=== PATIENT | female | born 1970 | race Caucasian/White ===

== ENCOUNTER 2017-04-16 13:13 | Emergency (ER) | payer MEDICARE, MEDICAID ==
[~2017-04-16] VITALS: Ht 157.5 cm; Wt 92.5 kg
[~2017-04-16 13:13] MED LIST: ESCI5TAB PO; ESOM40CA PO; LAMO200T2 PO; LEVO25TA2 PO; PROP20TA22 PO
[2017-04-16 13:51] VITALS: BP 127/88
[2017-04-16] MEDS ORDERED: ALBUTEROL FS 2.5 MG/3 ML VIAL.NEB ONE (14:13)
[2017-04-16] MEDS ORDERED: IPRATROPIUM NEB FS 0.5 MG/2.5 ML AMPUL.NEB ONE (14:13)
[2017-04-16] MEDS ORDERED: ALBUTEROL FS 2.5 MG/3 ML VIAL.NEB NEB ONE (14:30)
[2017-04-16] MEDS ORDERED: IPRATROPIUM NEB FS 0.5 MG/2.5 ML AMPUL.NEB NEB ONE (14:30)
[2017-04-16] MEDS ORDERED: methylPREDNISolone SOD SUCC 125 MG/2ML VIAL IM ONE (14:30)
[2017-04-16] MEDS ORDERED: methylPREDNISolone SOD SUCC 125 MG/2ML VIAL ONE (14:45)
== END 2017-04-16 15:24 | disposition home or self-care (01) ==
LOC: ER 13:15
DX: J44.9 Chronic obstructive pulmonary disease, unspecified (principal); I10 Essential (primary) hypertension; K21.9 Gastro-esophageal reflux disease without esophagitis; J45.909 Unspecified asthma, uncomplicated; F31.9 Bipolar disorder, unspecified; F17.210 Nicotine dependence, cigarettes, uncomplicated; Z88.0 Allergy status to penicillin; Z88.2 Allergy status to sulfonamides
CPT/HCPCS: 71045-TC; A4606; J2930; Z7610

== ENCOUNTER 2017-05-20 11:28 | Emergency (ER) | payer MEDICARE, MEDICAID ==
[~2017-05-20] VITALS: Ht 157.5 cm; Wt 92.5 kg
[~2017-05-20 11:28] MED LIST changes: +PROP20TA19 PO; -PROP20TA22 PO
[2017-05-20 11:38] VITALS: BP 149/107
--- NOTE | 2017-05-20 11:58 | NUR ---
CALLED RT FOR BREATHING TX
[2017-05-20] MEDS ORDERED: ALBUTEROL FS 2.5 MG/3 ML VIAL.NEB CONTNEB ONE (12:00)
[2017-05-20] MEDS ORDERED: ALBUTEROL FS 2.5 MG/3 ML VIAL.NEB NEB ONE (12:00)
[2017-05-20] MEDS ORDERED: predniSONE 20 MG TABLET PO ONE (12:00)
[2017-05-20] MEDS ORDERED: predniSONE 20 MG TABLET ONE (12:01)
[2017-05-20] MEDS ORDERED: ALBUTEROL FS 2.5 MG/3 ML VIAL.NEB ONE (12:08)
--- NOTE | 2017-05-20 12:13 | NUR ---
RT NOTE DUPLICATE HHN TX ORDER PLACED IN PT EMAR. SPOKE TO HE REQUESTED TO DISREGARD CONTINUOS HHN ORDER. APPROPRIATE HHN TX ORDER ADMINISTERED TO PT.
== END 2017-05-20 13:02 | disposition home or self-care (01) ==
LOC: ER 11:29
DX: J20.9 Acute bronchitis, unspecified (principal); I10 Essential (primary) hypertension; J45.909 Unspecified asthma, uncomplicated; F17.210 Nicotine dependence, cigarettes, uncomplicated; F31.9 Bipolar disorder, unspecified; K21.9 Gastro-esophageal reflux disease without esophagitis; Z88.0 Allergy status to penicillin; Z88.2 Allergy status to sulfonamides; Z98.890 Other specified postprocedural states
CPT/HCPCS: 71045; 94640 ×2; 99284; 99406; A4606; J7512; Z7610

== ENCOUNTER 2017-07-14 16:36 | Emergency (ER) | payer MEDICARE, MEDICAID ==
[~2017-07-14] VITALS: Ht 157.5 cm; Wt 94.3 kg
[2017-07-14 16:44] VITALS: BP 147/95
[2017-07-14] MEDS ORDERED: IBUPROFEN 600 MG TABLET PO ONE ×2 (17:27→17:30)
[2017-07-14] MEDS ORDERED: HYDROCODONE/APAP 5/325MG 1 EACH TABLET ONE (17:27)
[2017-07-14] MEDS ORDERED: HYDROCODONE/APAP 5/325MG 1 EACH TABLET PO ONE (17:30)
== END 2017-07-14 18:22 | disposition home or self-care (01) ==
LOC: ER 16:41
DX: M25.572 Pain in left ankle and joints of left foot (principal); I10 Essential (primary) hypertension; J45.909 Unspecified asthma, uncomplicated; K21.9 Gastro-esophageal reflux disease without esophagitis; F17.210 Nicotine dependence, cigarettes, uncomplicated; Z88.0 Allergy status to penicillin; Z88.2 Allergy status to sulfonamides; F31.9 Bipolar disorder, unspecified; Z98.890 Other specified postprocedural states
CPT/HCPCS: 73630-TC; A4606; Z7610

== ENCOUNTER 2017-08-17 15:13 | Emergency (ER) | payer MEDICARE, MEDICAID ==
[~2017-08-17] VITALS: Ht 157.5 cm; Wt 94.3 kg
[2017-08-17 15:13] VITALS: BP 146/85
[2017-08-17] MEDS ORDERED: IPRATROPIUM NEB FS 0.5 MG/2.5 ML AMPUL.NEB NEB ONE (16:00)
[2017-08-17] MEDS ORDERED: predniSONE 20 MG TABLET PO ONE (16:00)
[2017-08-17] MEDS ORDERED: ALBUTEROL FS 2.5 MG/3 ML VIAL.NEB NEB ONE (16:00)
[2017-08-17] MEDS ORDERED: IPRATROPIUM NEB FS 0.5 MG/2.5 ML AMPUL.NEB ONE (16:20)
[2017-08-17] MEDS ORDERED: ALBUTEROL FS 2.5 MG/3 ML VIAL.NEB ONE (16:20)
[2017-08-17] MEDS ORDERED: predniSONE 20 MG TABLET ONE (16:22)
== END 2017-08-17 17:20 | disposition home or self-care (01) ==
LOC: ER 15:17
DX: J18.9 Pneumonia, unspecified organism (principal); J20.9 Acute bronchitis, unspecified; J42 Unspecified chronic bronchitis; F41.9 Anxiety disorder, unspecified; I10 Essential (primary) hypertension; J45.909 Unspecified asthma, uncomplicated; K21.9 Gastro-esophageal reflux disease without esophagitis; F31.9 Bipolar disorder, unspecified; F17.210 Nicotine dependence, cigarettes, uncomplicated; Z88.0 Allergy status to penicillin; Z88.2 Allergy status to sulfonamides
CPT/HCPCS: 71045-TC; A4606; Z7610

== ENCOUNTER 2017-08-23 15:02 | Emergency (ER) | payer MEDICARE, MEDICAID ==
[~2017-08-23] VITALS: Ht 167.6 cm; Wt 83.9 kg
[2017-08-23 15:10] VITALS: BP 139/89
[2017-08-23] MEDS ORDERED: DEXAMETHASONE SOD PHOSPHATE 10 MG/ML VIAL ONE (15:29)
[2017-08-23] MEDS ORDERED: DEXAMETHASONE SOD PHOSPHATE 10 MG/ML VIAL IM ONE (15:30)
== END 2017-08-23 15:42 | disposition home or self-care (01) ==
LOC: ER 15:04
DX: J20.9 Acute bronchitis, unspecified (principal); F31.9 Bipolar disorder, unspecified; I10 Essential (primary) hypertension; K21.9 Gastro-esophageal reflux disease without esophagitis; F17.210 Nicotine dependence, cigarettes, uncomplicated; Z88.0 Allergy status to penicillin; Z88.2 Allergy status to sulfonamides
CPT/HCPCS: A4606; J1100; Z7610

== ENCOUNTER 2017-09-03 22:04 | Emergency (ER) | payer MEDICARE, MEDICAID ==
[~2017-09-03] VITALS: Ht 157.5 cm; Wt 94.3 kg
[2017-09-03 22:11] VITALS: BP 169/114
[2017-09-03] MEDS ORDERED: LORAZEPAM 1 MG TABLET ONE (23:05)
[2017-09-03] MEDS ORDERED: LORAZEPAM 1 MG TABLET PO ONE (23:30)
== END 2017-09-03 23:08 | disposition home or self-care (01) ==
LOC: ER 22:06
DX: R05 Cough (principal); F41.9 Anxiety disorder, unspecified; F31.9 Bipolar disorder, unspecified; J45.909 Unspecified asthma, uncomplicated; I10 Essential (primary) hypertension; F17.210 Nicotine dependence, cigarettes, uncomplicated; Z88.2 Allergy status to sulfonamides; Z88.0 Allergy status to penicillin; K21.9 Gastro-esophageal reflux disease without esophagitis
CPT/HCPCS: 99284; 99406; A4606; Z7610

== ENCOUNTER 2017-10-27 17:40 | Inpatient (IN) | payer MEDICARE, MEDICAID ==
[~2017-10-27] VITALS: Ht 157.5 cm; Wt 96.6 kg
--- NOTE | 2017-10-27 18:28 | NUR ---
[facility] - [employer] EXAMINER EULOGIO SANTOS
[2017-10-27] MEDS ORDERED: KETOROLAC TROMETHAMINE INJ 30 MG/ML VIAL IV ONE (18:30)
[2017-10-27] MEDS ORDERED: LORAZEPAM INJ 2 MG/ML VIAL IV ONE (18:30)
[2017-10-27] MEDS ORDERED: PIPERACILLIN /TAZOBACTAM 3.375 G in IV D5W 50 ML IV ONE (18:30)
[2017-10-27] MEDS ORDERED: CEFTRIAXONE 1GM BAG (ER ONLY) 50 ML IV ONE (18:30)
[2017-10-27] MEDS ORDERED: IV NS 0.9% 1,000 ML BAG IV ONE (18:30)
[2017-10-27] MEDS ORDERED: LAMO25TA5 PO (18:31)
[2017-10-27] MEDS ORDERED: PROP10TA68 PO (18:31)
[2017-10-27] MEDS ORDERED: CLON0.5T12 PO (18:31)
[2017-10-27] MEDS ORDERED: VENL225T PO (18:31)
[2017-10-27] MEDS ORDERED: QUET25TA PO (18:31)
[2017-10-27 18:39] LABS: BASOPHILS # (AUTO) 0.1 /CMM (0.0-0.2); BASOPHILS % (AUTO) 0.5 % (0.0-2.0); EOSINOPHILS % (AUTO) 2.4 % (0.0-6.0); HEMATOCRIT 42 % (33-45); HEMOGLOBIN 14.5 g/dL (11.5-14.8); LYMPHOCYTES % (AUTO) 14.9 % (20.0-44.0); MEAN CORPUSCULAR HEMOGLOBIN 31 PG (26.0-33.0); MEAN CORPUSCULAR HGB CONC 35 g/dl (31.0-36.0); MEAN CORPUSCULAR VOLUME 89 fL (82-100); MONOCYTES % (AUTO) 7.7 % (2.0-12.0); NEUTROPHILS # (AUTO) 10.2 /CMM (1.8-8.9); NEUTROPHILS % (AUTO) 74.5 % (43.0-81.0); PLATELET COUNT (AUTO) 331 /CMM (150-450); RDW COEFFICIENT OF VARIATION 13.3 (11.5-15.0); RED BLOOD CELL COUNT(AUTO) 4.71 MIL/uL (4.0-5.2); WHITE BLOOD COUNT (AUTO) 13.6 K/uL (4.3-11.0)
[2017-10-27] MEDS ORDERED: IV NS 0.9% 1,000 ML IV PRN (18:39)
[2017-10-27] MEDS ORDERED: LORAZEPAM INJ 2 MG/ML VIAL ONE (18:39)
[2017-10-27] MEDS ORDERED: KETOROLAC TROMETHAMINE 15 MG/ML VIAL ONE (18:42)
--- NOTE | 2017-10-27 18:53 | NUR ---
CALLED NURSE SUP FOR MED/SURG BED
--- NOTE | 2017-10-27 18:54 | NUR ---
pt pending admit iv started 20g rt ac labs sent to lab .not able to given ua at this time iv ns bolus and med given per md wagner ativan 1 mg ivp pain 10/10 left breast swollen and son. no drainage at this time .
[2017-10-27 18:57] LABS: CALCIUM, SERUM 8.5 mg/dL (8.5-10.1); CARBON DIOXIDE 22 mmol/L (21-32); CHLORIDE 103 mmol/L (98-107); CREATININE 0.6 mg/dL (0.6-1.3); GLUCOSE 76 mg/dL (74-106); POTASSIUM 3.9 mmol/L (3.5-5.1); SODIUM SERUM 135 mmol/L (136-145); UREA NITROGEN, BLOOD 6 mg/dL (7-18)
--- NOTE | 2017-10-27 18:58 | NUR ---
pt stated feeling better with pain /
[2017-10-27] MEDS ORDERED: MAGNESIUM HYDROXIDE 30 ML UDC PO PRN (19:00)
[2017-10-27] MEDS ORDERED: LEVOFLOXACIN (500MG) 500 MG TABLET PO ONE (19:00)
[2017-10-27] MEDS ORDERED: Z GUARD REMEDY 2 OZ OINT TP PRN (19:00)
[2017-10-27] MEDS ORDERED: ONDANSETRON HCL/PF 4 MG/2 ML VIAL IVP PRN (19:00)
[2017-10-27] MEDS ORDERED: ACETAMINOPHEN 325 MG TABLET PO PRN (19:00)
[2017-10-27] MEDS ORDERED: MAG HYDROX/AL HYDROX/SIMETH 30 ML UDC PO PRN (19:00)
[2017-10-27 19:01] LABS: INR 0.92 (0.85-1.15)
[2017-10-27 19:03] LABS: ALANINE AMINOTRANSFERASE 26 U/L (12-78); ALBUMIN 3.7 g/dL (3.4-5.0); ALKALINE PHOSPHATASE 85 U/L (46-116); ASPARTATE AMINOTRANSFERASE 13 U/L (15-37); BILIRUBIN,DIRECT 0.1 mg/dL (0.0-0.2); BILIRUBIN,TOTAL 0.4 mg/dL (0.2-1.0); LIPASE 117 U/L (73-393); TOTAL PROTEIN, SERUM 7.2 g/dL (6.4-8.2)
[2017-10-27 19:04] LABS: TROPONIN I < 0.017 ng/mL (0.00-0.056)
--- NOTE | 2017-10-27 19:04 | NUR ---
pt hx homeless meth etoh sober now smokes 1 1/2 arielle daily 30 years
--- NOTE | 2017-10-27 19:10 | NUR ---
REPORT RECEIVED FROM NATALIA KIRKPATRICK FOR ARNOLDO. READY FOR TRANSFER TO FLOOR AFTER SHIFT CHANGE.
[2017-10-27] MEDS ORDERED: LEVOFLOXACIN (750 MG) 750 MG TABLET ONE (19:29)
[2017-10-27 19:32] LABS: IRON, SERUM 43 ug/dl (50-175); TOTAL IRON BINDING CAPACITY 339 ug/dl (250-450)
--- NOTE | 2017-10-27 19:34 | NUR ---
REPORT GIVEN TO KAREN KIRKPATRICK FOR ADMISSION. NAD NOTED. ALL NEEDS ATTENDED TO.
[2017-10-27 20:00] VITALS: BP 134/64
[2017-10-27] MEDS ORDERED: VANCOMYCIN 1 GM VIAL ONE (20:28)
--- NOTE | 2017-10-27 20:28 | NUR ---
MS RN NOTES: RACHEL SANTOS AT BEDSIDE.
[2017-10-27] MEDS ORDERED: ENOXAPARIN SODIUM 40 MG/0.4 ML DISP.SYRIN SQ ONE (20:30)
[2017-10-27] MEDS ORDERED: VANCOMYCIN 1.5 GM in IV D5W 500ml IV ONE (21:00)
[2017-10-27] MEDS: ENOXAPARIN SODIUM 40 MG/0.4 ML DISP.SYRIN SQ SCH (21:09)
[2017-10-27] MEDS: QUETIAPINE FUMARATE 25 MG TABLET PO SCH (21:10)
[2017-10-27] MEDS ORDERED: PROPRANOLOL HCL 10 MG TABLET PO ONE (21:30)
[2017-10-27] MEDS ORDERED: LamoTRIgine 100 MG TABLET ONE (22:14)
--- NOTE | 2017-10-27 22:15 | NUR ---
MS RN NOTES: CALLED AFTER HOUR PHARMACY IN [place] TO LAMICTAL 250 MG TO CHANGE SCHEDULE FOR TONIGHT PT DID NOT HAVE HER DOSE TONIGHT. SPOKE WITH SAMANTHA. ALSO, THEY MENTIONED CHARGE NURSE HAS TO OVERRIDE MEDICATION I WAS NOT ABLE TO PULL IT OUT OF BOTH MED ROOMS. CHARGE NURSE AWARE. AFTER HOURS PHARMACY ALSO AWARE THEY WERE THE ONE WHO ADVISED IT.
[2017-10-27] MEDS: LamoTRIgine 100 MG TABLET PO SCH (22:21)
--- NOTE | 2017-10-27 22:48 | NUR ---
MS RN NOTES: PT SIGNED CONSENT FOR SMOKING. PT BROUGHT DOWN WITH WARP DOFFER, ANTOINETTE, FOR A SMOKE BREAK.
--- NOTE | 2017-10-27 23:40 | NUR ---
MS RN NOTES: PT BACK FROM SMOKE BREAK IN STABLE CONDITION.
[2017-10-28] MEDS: HYDROCODONE/APAP 5/325MG 1 EACH TABLET PO PRN ×4 (00:42→20:10)
--- NOTE | 2017-10-28 00:42 | NUR ---
MS RN NOTES: PT COMPLAINING OF L BREAST PAIN 10/18. PT WAS ADMINISTERED NORCO 5. WILL CONTINUE TO MONITOR PT.
--- NOTE | 2017-10-28 05:00 | NUR ---
MS RN NOTES: PT APPEARS TO BE ANXIOUS. PT BROUGHT DOWN FOR A SMOKE BREAK. EXPLAINED TO PT RISKS AND BENEFITS. PT UNDERSTOOD.
--- NOTE | 2017-10-28 05:25 | NUR ---
MS RN NOTES: INFORMED STRINGED INSTRUMENT REPAIRER JOANA ABOUT PT RETAINING URINE. DID LATEST BLADDER SCANNER AND THE MOST WAS 163. PT IS HAVING THE URGE BUT HAS NOT GONE YET. PER STRINGED INSTRUMENT REPAIRER JOANA, WILL DO ANOTHER DOSE OF FLOMAX 0.4MG PO. WILL MONITOR FOR IT.
--- NOTE | 2017-10-28 05:35 | NUR ---
MS RN NOTES: PT'S PHONE CHARGING IN FLOOR REPRESENTATIVE STATION. LABEL PLACED BEHIND BLACK PHONE.
[2017-10-28 07:20] LABS: BASOPHILS % (AUTO) 0.3 % (0.0-2.0); EOSINOPHILS % (AUTO) 2.6 % (0.0-6.0); HEMATOCRIT 38 % (33-45); HEMOGLOBIN 13.1 g/dL (11.5-14.8); LYMPHOCYTES % (AUTO) 16.8 % (20.0-44.0); MEAN CORPUSCULAR HEMOGLOBIN 31 PG (26.0-33.0); MEAN CORPUSCULAR HGB CONC 34 g/dl (31.0-36.0); MEAN CORPUSCULAR VOLUME 92 fL (82-100); MONOCYTES # (AUTO) 0.7 /CMM (0.1-1.30); NEUTROPHILS % (AUTO) 74.3 % (43.0-81.0); PLATELET COUNT (AUTO) 241 /CMM (150-450); RDW COEFFICIENT OF VARIATION 13.9 (11.5-15.0); RED BLOOD CELL COUNT(AUTO) 4.18 MIL/uL (4.0-5.2); WHITE BLOOD COUNT (AUTO) 12.1 K/uL (4.3-11.0)
[2017-10-28 07:27] LABS: CALCIUM, SERUM 7.8 mg/dL (8.5-10.1); CREATININE 0.7 mg/dL (0.6-1.3); MAGNESIUM 1.8 mg/dL (1.8-2.4); PHOSPHORUS 3.8 mg/dL (2.5-4.9); POTASSIUM 3.8 mmol/L (3.5-5.1)
[2017-10-28 07:30] LABS: THYROID STIMULATING HORMONE 7.219 uIU/mL (0.358-3.74)
--- NOTE | 2017-10-28 07:38 | NUR ---
MS RN CLOSING NOTES: ALL NEEDS WERE ATTENDED AND ANTICIPATED FOR. PT KEPT CLEAN, DRY, AND COMFORTABLE. PT HAS IV AND IS BEING INFUSED WITH IV NS AT 75ML/HR. CALL LIGHT WITHIN PT'S REACH. BED KEPT IN LOW, LOCKED POSITION, AND SIDE RAILS X2UP. ENDORSED TO AM FOR ARNOLDO.
[2017-10-28 08:00] VITALS: BP 125/66
[2017-10-28] MEDS ORDERED: FEE PK DOSING 1 MIN EA MC ONE (08:00)
--- NOTE | 2017-10-28 08:00 | NUR ---
m/s human services program specialist: initial assessment received pt in bed awake, a/ox4, ambulatory. no c/o pain at this time. dressing to left breast in place. for ultrasound of left breast today. instructed to call for assistance. will continue to monitor.
[2017-10-28] MEDS: NICOTINE PATCH (14MG) 14 MG PATCH.TD24 TD SCH (08:14)
[2017-10-28] MEDS: VENLAFAXINE XR 75 MG CAP.SR.24H PO SCH (08:15)
[2017-10-28] MEDS: PROPRANOLOL HCL 10 MG TABLET PO SCH ×2 (08:15→16:21)
[2017-10-28] MEDS: PANTOPRAZOLE 40 MG TABLET.DR PO SCH (08:15)
[2017-10-28] MEDS: VANCOMYCIN 1.25 GM in IV D5W 500 ML IV SCH ×2 (09:16→21:59)
--- NOTE | 2017-10-28 09:50 | NUR ---
m/s wood lather: notes us of left breast completed. dressing to left breast applied; noted with drainage of brown pus, no peeling noted, still with redness. instructed to call for assistance. will continue to monitor.
--- NOTE | 2017-10-28 10:29 | NUR ---
m/s senior piping designer: md visit seen and examined by concha (transportation clerk) at this time. for id consult and oncologist consult. pt aware and concha updated plan of care at bedside. will monitor.
--- NOTE | 2017-10-28 11:27 | NUR ---
m/s desk operator: notes c/o 11/18 left breast discomfort, medicated with norco 1 tab po as ordered. instructed to call for assistance. will monitor.
--- NOTE | 2017-10-28 11:43 | NUR ---
m/s sales strategy manager: plastic surgeon seen by dr. gonzalez and wound culture collected to left breast abscess. specimen sent to lab.
--- NOTE | 2017-10-28 12:27 | NUR ---
m/s manager diversity: notes pt resting comfortable in bed and request for ativan order for her anxiety level, stated, "e.r. gave me ativan and it help for my anxiety, can you call the doctor for it." concha (line construction engineer) notified and made aware with no new order at this time.
[2017-10-28] MEDS ORDERED: clonazePAM 0.5 MG TABLET PO ONE (13:00)
--- NOTE | 2017-10-28 14:00 | NUR ---
m/s tobacco shaker: notes pt resting calmly in bed with no distress noted. instructed to call for assistance. will continue to monitor.
[2017-10-28 16:00] VITALS: BP 133/68
--- NOTE | 2017-10-28 16:40 | NUR ---
m/s mexican food maker hand: notes report given to mohsen (rn) for continuity of care.
--- NOTE | 2017-10-28 19:06 | NUR ---
MS RN NOTES PT REMAINS STABLE. SHE DENIES PAIN AT THIS TIME. ALL NEEDS ANTICIPATED FOR AND MET. IV REMAINS PATENT AND INTACT, WILL ENDORSE TO NIGHTSHIFT NURSE FOR ARNOLDO
--- NOTE | 2017-10-28 19:47 | NUR ---
MS/RN OPENING NOTES PT RECEIVED AWAKE AND LAYING COMFORTABLY IN BED. A/OX4. ON ROOM AIR, BREATHING EVEN AND UNLABORED. DENIES SOB, NOTES PAIN TO HER LEFT BREAST AND REQUESTING NORCO. IV TO RIGHT HAND PATENT AND INTACT RUNNING IVF ORDERED. BED IN LOW/LOCKED POSITION WITH CALL LIGHT IN REACH. SIDE RAILS UPX2. WILL CONTINUE TO MONITOR
[2017-10-28 20:00] VITALS: BP 143/97
--- NOTE | 2017-10-28 20:45 | NUR ---
MS/RN NOTES PT WENT DOWN TO SMOKE ACCOMPANIED BY ROSE ERVIN Addendum: 10/28/17 at 2056 by PERRI SIDHU RN PT BACK UP TO UNIT IN STABLE CONDITION
[2017-10-28] MEDS: QUETIAPINE FUMARATE 25 MG TABLET PO SCH (21:58)
[2017-10-28] MEDS: LamoTRIgine 100 MG TABLET PO SCH (21:59)
[2017-10-28] MEDS ORDERED: LamoTRIgine 25 MG TABLET PO SCH (22:00)
[2017-10-28] MEDS ORDERED: LamoTRIgine 100 MG TABLET PO SCH (22:00)
[2017-10-28] MEDS: ENOXAPARIN SODIUM 40 MG/0.4 ML DISP.SYRIN SQ SCH (22:01)
--- NOTE | 2017-10-28 23:00 | NUR ---
MS/RN NOTES PT WENT DOWN FOR ANOTHER SMOKE BREAK. INFORMED HER THAT THIS WILL BE THE LAST TIME FOR THE NIGHT. VERBALIZED UNDERSTANDING. ACCOMPANIED BY ROSE
--- NOTE | 2017-10-28 23:10 | NUR ---
MS/RN NOTES PT BACK UP TO UNIT IN STABLE CONDITION. CIGARETTES AND SIGNALS OFFICER LEFT AT NURSING STATION.
--- NOTE | 2017-10-29 07:30 | NUR ---
RN OPENING NOTES RECEIVED PT. IN BED AWAKE, A&OX4, EATING BREAKFAST. BREATHING UNLABORED AND EVENLY ON ROOM AIR. PT. DENIES PAIN. IV ACCESS IS ON LEFT HAND INTACT, AND PATENT. PT.'S SKIN IS WARM AND DRY TO TOUCH. BED IS IN LOWEST, AND LOCKED POSITION. 2 SIDE RAILS UP, AND INSTRUCTED PT. TO USE CALL LIGHT FOR ASSISTANCE. ALL NEEDS MET. WILL CONTINUE TO ASSESS AND MONITOR.
--- NOTE | 2017-10-29 07:34 | NUR ---
MS/RN CLOSING NOTES PT ASLEEP, A/OX3. ON ROOM AIR, BREATHING EVEN AND UNLABORED. NO SOB, PAIN OR ACUTE DISTRESS NOTED. IV TO LEFT HAND PATENT AND INTACT. ALL DUE MEDS GIVEN. NO SIGNIFICANT CHANGES OVERNIGHT. ALL NEEDS MET. PT SLEPT WELL DURING SHIFT. LEFT BREAST CLEANSED WITH NS, PAT DRY AND COVERED WITH DRY GAUZE, SECURED WITH TAPE. WOUND CONSULT ORDERED. BED REMAINS IN LOW/LOCKED POSITION WITH CALL LIGHT IN REACH AND BILATERAL UPPER SIDE RAILS UPX2. ENDORSED TO DAY SHIFT RN ARNOLDO.
--- NOTE | 2017-10-29 07:38 | NUR ---
WOUND CARE CONSULT WOUND CARE RECEIVED CONSULT FOR LEFT BREAST WOUND. WOUND CARE WILL DEFER CONSULT AND TREATMENT PLANS TO SURGICAL TEAM WHO ARE CURRENTLY FOLLOWING. PT WITH GILBERTO AT 23. WILL SEE PRN.
[2017-10-29 08:00] VITALS: BP 119/68
--- NOTE | 2017-10-29 08:00 | NUR ---
PT. WAS SEEN AND EXAMINED BY DR. MIRELES FOR A WOUND CONSULTATION OF THE LEFT BREAST. MD RECOMMENDED PT. SURGICAL INTERVENTION AND ORDERED A CONSENT FOR INCISION AND DRAINAGE OF LEFT BREAST ABCESS AND BIOPSY. PT. VERBALLY AGREED ON HAVING THE PROCEDURE.
[2017-10-29 08:28] LABS: CALCIUM, SERUM 8.2 mg/dL (8.5-10.1); CREATININE 0.8 mg/dL (0.6-1.3); POTASSIUM 3.9 mmol/L (3.5-5.1)
[2017-10-29] MEDS: VENLAFAXINE XR 75 MG CAP.SR.24H PO SCH (08:42)
[2017-10-29] MEDS: PANTOPRAZOLE 40 MG TABLET.DR PO SCH (08:42)
[2017-10-29] MEDS: PROPRANOLOL HCL 10 MG TABLET PO SCH ×2 (08:45→16:58)
[2017-10-29] MEDS: NICOTINE PATCH (14MG) 14 MG PATCH.TD24 TD SCH (08:46)
[2017-10-29] MEDS: HYDROCODONE/APAP 5/325MG 1 EACH TABLET PO PRN (09:12)
[2017-10-29] MEDS: VANCOMYCIN 1.25 GM in IV D5W 500 ML IV SCH ×2 (09:17→20:52)
[2017-10-29 16:00] VITALS: BP 117/58
--- NOTE | 2017-10-29 19:30 | NUR ---
MS RN OPENING NOTES PT SITTING IN BED AWAKE, A&OX4. BREATHING UNLABORED ON ROOM AIR. PT DENIES PAIN AT THIS TIME. IV ACCESS IS ON LEFT HAND INTACT, AND PATENT. BED IS IN LOWEST, AND LOCKED POSITION. 2 SIDE RAILS UP, CALL LIGHT WITHIN REACH. PT SMOCKS AND ALLOWED TO SMOKE OUTSIDE WITH ACCOMPANY FIRE PROTECTION ENGINEER REGULATED PROGRAM MANAGER.PT IS NPO AFTER MIDNIGHT.WILL CONTINUE TO MONITOR
--- NOTE | 2017-10-29 19:31 | NUR ---
RN CLOSING NOTES PT. IN BED AWAKE, A&OX4. BREATHING UNLABORED AND EVENLY ON ROOM AIR. PT. DENIES PAIN. IV ACCESS IS ON LEFT HAND INTACT, AND PATENT. PT.'S SKIN IS WARM AND DRY TO TOUCH. BED IS IN LOWEST, AND LOCKED POSITION. 2 SIDE RAILS UP, AND INSTRUCTED PT. TO USE CALL LIGHT FOR ASSISTANCE. ALL NEEDS MET. WILL ENDORSE REPORT TO NURSE. PT. IS NPO AFTER MIDNIGHT. PROCEDURE, AND ANESTHESIA CONSENTS SIGNED BY PT. CHECKLIST IN PROGRESS.
[2017-10-29 20:00] VITALS: BP 116/77
[2017-10-29] MEDS: ENOXAPARIN SODIUM 40 MG/0.4 ML DISP.SYRIN SQ SCH (21:00)
--- NOTE | 2017-10-29 21:02 | NUR ---
WITHHELD LOVENOX DUE TO PT HAVING A PROCEDURE TOMORROW AT 07-30 AM
[2017-10-29] MEDS: QUETIAPINE FUMARATE 25 MG TABLET PO SCH (21:51)
[2017-10-29] MEDS: LamoTRIgine 100 MG TABLET PO SCH (21:51)
[2017-10-30 06:24] LABS: BASOPHILS % (AUTO) 0.4 % (0.0-2.0); EOSINOPHILS % (AUTO) 5.4 % (0.0-6.0); HEMATOCRIT 46 % (33-45); LYMPHOCYTES # (AUTO) 2.1 /CMM (0.8-4.8); LYMPHOCYTES % (AUTO) 24.9 % (20.0-44.0); MEAN CORPUSCULAR HEMOGLOBIN 28 PG (26.0-33.0); MEAN CORPUSCULAR HGB CONC 31 g/dl (31.0-36.0); MEAN CORPUSCULAR VOLUME 91 fL (82-100); MONOCYTES # (AUTO) 0.7 /CMM (0.1-1.30); MONOCYTES % (AUTO) 8.5 % (2.0-12.0); NEUTROPHILS # (AUTO) 5.1 /CMM (1.8-8.9); NEUTROPHILS % (AUTO) 60.8 % (43.0-81.0); PLATELET COUNT (AUTO) 309 /CMM (150-450); RDW COEFFICIENT OF VARIATION 14.1 (11.5-15.0); RED BLOOD CELL COUNT(AUTO) 5.02 MIL/uL (4.0-5.2); WHITE BLOOD COUNT (AUTO) 8.4 K/uL (4.3-11.0)
[2017-10-30] MEDS ORDERED: ANESTHESIA TRAY IN PYXIS 1 EA TRAY MC ONE (07:03)
--- NOTE | 2017-10-30 07:05 | NUR ---
MS RN CLOSING NOTES PT IN BED AWAKE, A&OX4. BREATHING UNLABORED AND EVENLY ON ROOM AIR. PT. DENIES PAIN. IV ACCESS IS ON LEFT HAND INTACT, AND PATENT. BED IS IN LOWEST, AND LOCKED POSITION. 2 SIDE RAILS UP. ALL NEEDS MET. PT. IS NPO AFTER MIDNIGHT. PROCEDURE AT 0730 AM. WILL ENDORSE TO NEXT SHIFT FOR ARNOLDO.
[2017-10-30 07:10] LABS: CALCIUM, SERUM 8.6 mg/dL (8.5-10.1); CREATININE 0.6 mg/dL (0.6-1.3); POTASSIUM 3.7 mmol/L (3.5-5.1)
--- NOTE | 2017-10-30 07:18 | NUR ---
MS RN NOTES PATIENT AT OPERATING ROOM FOR SURGERY.
[2017-10-30] MEDS ORDERED: MIDAZOLAM HCL 2 MG/2ML VIAL ONE (07:23)
[2017-10-30] MEDS ORDERED: LIDOCAINE HCL/PF 1% 30 ML SDV ONE (08:15)
[2017-10-30] MEDS ORDERED: FENTANYL PF 100MCG/2ML AMPUL ONE (08:49)
[2017-10-30] MEDS: NICOTINE PATCH (14MG) 14 MG PATCH.TD24 TD SCH (09:00)
--- NOTE | 2017-10-30 09:15 | NUR ---
MS RN NOTES PATIENT CAME BACK FROM SURGERY WITH STABLE VITAL SIGNS, ALERT ORIENTED X 4, NO ACUTE DISTRESS NOTED, BREATHING UNLABORED, NO SOB NOTED. DRESSING ON THE LEFT BREAST INTACT, CLEAN AND DRY. DENIED ANY PAIN. REPORT GIVEN BY KADEEM. WITH NEW ORDERS RECEIVED FROM DR GONZALEZ, ANDRÉS CHANGE DIET TO REGULAR AND RESUME ALL ORDERS, NOTED AND CARRIED OUT. NEEDS ATTENDED AND NOTIFIED THAT BREAKFAST WILL BE ORDERED TO HER AND TAKEN FROM THE KITCHEN, PATIENT ANGRILY RESPONDED, " I DON'T CARE ABOUT MY FOOD, I WANT TO SMOKE", EXPLAINED TO THE PATIENT THAT SHE JUST CAME BACK FROM SURGERY AND WILL NEED TO MONITOR, RISK AND BENEFITS EXPLAINED.
[2017-10-30] MEDS: PANTOPRAZOLE 40 MG TABLET.DR PO SCH (09:40)
[2017-10-30] MEDS: VENLAFAXINE XR 75 MG CAP.SR.24H PO SCH (09:40)
[2017-10-30] MEDS: PROPRANOLOL HCL 10 MG TABLET PO SCH ×2 (09:42→17:37)
[2017-10-30] MEDS: VANCOMYCIN 1.25 GM in IV D5W 500 ML IV SCH ×2 (09:42→20:58)
[2017-10-30] MEDS: HYDROCODONE/APAP 5/325MG 1 EACH TABLET PO PRN (13:23)
[2017-10-30 16:00] VITALS: BP 116/74
--- NOTE | 2017-10-30 18:45 | NUR ---
MS RN NOTES CLARIFIED CLONAZEPAM 0.5 MG PO PRN BID PATIENT'S HOME MEDICATION IF SHE WANTS TO CONTINUE, WITH ORDERS TO CONTINUE MEDICATIONS. NOTED AND CARRIED OUT. FAXED TO PHARMACY.
--- NOTE | 2017-10-30 18:53 | NUR ---
MS RN NOTES PATIENT IN BED ALERT ORIENTED X 4. NO ACUTE DISTRESS NOTED. BREATHING UNLABORED. NO SOB NOTED. DENIED ANY PAIN. IV ACCESS PATENT AND INTACT, NO REDNESS OR SWELLING NOTED. DRESSING ON THE LEFT BREAST INTACT, CLEAN AND DRY. DUE MEDICATIONS GIVEN, NO ASE NOTED. NEEDS ATTENDED AND ANTICIPATED. CALL LIGHT WITHIN REACH. WILL ENDORSE TO NIGHT NURSE FOR CONTINUITY CARE.
--- NOTE | 2017-10-30 19:00 | NUR ---
MS RN OPENING NOTES PATIENT IN ROOM, ALERT ORIENTED X 4. NO ACUTE DISTRESS NOTED. BREATHING UNLABORED. NO SOB NOTED. DENIED ANY PAIN. DRESSING ON THE LEFT BREAST INTACT, CLEAN AND DRY. IV SIDE INTACT AND PATENT. SAFETY PRECAUTIONS IN PLACE. CALL LIGHT WITHIN REACH. WILL CONTINUE TO MONITOR .
[2017-10-30 20:00] VITALS: BP 142/82
[2017-10-30] MEDS: ENOXAPARIN SODIUM 40 MG/0.4 ML DISP.SYRIN SQ SCH (21:00)
[2017-10-30] MEDS: QUETIAPINE FUMARATE 25 MG TABLET PO SCH (21:45)
[2017-10-30] MEDS: LamoTRIgine 100 MG TABLET PO SCH (21:46)
[2017-10-30] MEDS: clonazePAM 0.5 MG TABLET PO PRN (23:39)
--- NOTE | 2017-10-31 06:35 | NUR ---
MS RN CLOSING NOTES PATIENT IN BED ALERT ORIENTED X 4. NO ACUTE DISTRESS NOTED. DENIED ANY PAIN. IV ACCESS PATENT AND INTACT.DRESSING ON THE LEFT BREAST INTACT, CLEAN AND DRY. PT IS A HEAVY CIGARETTE SMOKER, REFUSES NICOTINE PATCH.LAST TIME WENT TO SMOCK OUTSIDE AT 0620AM WITH ROSE FRANKEL . NEEDS ATTENDED AND ANTICIPATED. CALL LIGHT WITHIN REACH. WILL ENDORSE TO NEXT SHIFT FOR CONTINUITY CARE.
[2017-10-31 07:13] LABS: BASOPHILS # (AUTO) 0.1 /CMM (0.0-0.2); BASOPHILS % (AUTO) 0.6 % (0.0-2.0); HEMATOCRIT 42 % (33-45); HEMOGLOBIN 13.9 g/dL (11.5-14.8); LYMPHOCYTES # (AUTO) 2.3 /CMM (0.8-4.8); LYMPHOCYTES % (AUTO) 18.1 % (20.0-44.0); MEAN CORPUSCULAR HEMOGLOBIN 31 PG (26.0-33.0); MEAN CORPUSCULAR HGB CONC 33 g/dl (31.0-36.0); MEAN CORPUSCULAR VOLUME 92 fL (82-100); MONOCYTES % (AUTO) 7.8 % (2.0-12.0); NEUTROPHILS # (AUTO) 9.1 /CMM (1.8-8.9); NEUTROPHILS % (AUTO) 72.5 % (43.0-81.0); PLATELET COUNT (AUTO) 322 /CMM (150-450); RDW COEFFICIENT OF VARIATION 14.1 (11.5-15.0); RED BLOOD CELL COUNT(AUTO) 4.54 MIL/uL (4.0-5.2); WHITE BLOOD COUNT (AUTO) 12.5 K/uL (4.3-11.0)
--- NOTE | 2017-10-31 07:20 | NUR ---
MS RN NOTES PATIENT SITTING IN BED ALERT ORIENTED X 4. NO ACUTE DISTRESS NOTED. BREATHING UNLABORED. NO SOB NOTED. DENIED ANY PAIN. IV ACCESS PATENT AND INTACT, NO REDNESS OR SWELLING NOTED. DRESSING ON THE LEFT BREAST INTACT, CLEAN AND DRY. CALL LIGHT WITHIN REACH. WILL CONTINUE TO MONITOR.
[2017-10-31 07:28] LABS: CALCIUM, SERUM 8.5 mg/dL (8.5-10.1); CREATININE 0.8 mg/dL (0.6-1.3); MAGNESIUM 2.1 mg/dL (1.8-2.4); PHOSPHORUS 3.6 mg/dL (2.5-4.9); POTASSIUM 3.4 mmol/L (3.5-5.1)
[2017-10-31 08:00] VITALS: BP 110/88
[2017-10-31 08:18] VITALS: BP 114/86
[2017-10-31] MEDS: VENLAFAXINE XR 75 MG CAP.SR.24H PO SCH (08:18)
[2017-10-31] MEDS: PANTOPRAZOLE 40 MG TABLET.DR PO SCH (08:18)
[2017-10-31] MEDS: PROPRANOLOL HCL 10 MG TABLET PO SCH (08:18)
[2017-10-31] MEDS: NICOTINE PATCH (14MG) 14 MG PATCH.TD24 TD SCH (08:19)
[2017-10-31] MEDS ORDERED: FERROUS SULFATE (325 MG) 325 MG/TAB TABLET PO SCH (09:00)
[2017-10-31] MEDS: VANCOMYCIN 1.25 GM in IV D5W 500 ML IV SCH (09:30)
[2017-10-31] MEDS: clonazePAM 0.5 MG TABLET PO PRN (10:24)
[2017-10-31] MEDS ORDERED: POTASSIUM CHLORIDE 20 MEQ TAB.PRT.SR PO SCH (10:30)
--- NOTE | 2017-10-31 11:30 | NUR ---
MS RN NOTES IV ACCESS ACCIDENTALLY REMOVED BY PATIENT, WILL CHANGE IV SITE AND PATIENT STATED " DO IT LATER, NOT NOW." RISK AND BENEFITS EXPLAINED, VERBALIZED UNDERSTANDING. WILL OFFER TO INSERT IV ACCESS AGAIN LATER. NO REDNESS OR SWELLING, DENIED ANY PAIN,NO BLEEDING ON THE SITE NOTED.
[2017-10-31] MEDS ORDERED: CLIN300C11 PO (11:53)
--- NOTE | 2017-10-31 14:10 | NUR ---
MS RN NOTES SEEN AND EVALUATED BY DR ANDRÉS GONZALEZ, DRESSING CHANGED. WOUND CARE INSTRUCTIONS GIVEN BY MD TO THE PATIENT, INCLUDING FOLLOW UP VERBALIZED UNDERSTANDING.
--- NOTE | 2017-10-31 14:30 | NUR ---
MS DISCHARGE NOTES PATIENT DISCHARGED HOME WITH STABLE VITAL SIGNS. NO ACUTE STRESS NOTED. BREATHING UNLABORED. DENIED ANY PAIN. DISCHARGE INSTRUCTIONS GIVEN TO THE PATIENT INCLUDING NEW PRESCRIPTION, FOLLOW UP WITH SURGEON, PRIMARY DOCTOR AND WOUND CLINIC, VERBALIZED UNDERSTANDING. ALL BELONGINGS ACCOUNTED FOR. DRESSING INTACT ON LEFT BREAST CLEAN AND DRY. ASSISTED TO THE LOBBY TO A PRIVATE CAR PICKED UP BY FRIEND IN STABLE CONDITION.
== END 2017-10-31 14:30 | disposition home or self-care (01) | DRG 584 ==
LOC: ER 17:45 → MED 19:22
PROVIDERS: ADMIT Registered Nurse; ATTEND Registered Nurse
PROC: 0HBU0ZZ Excision of Left Breast, Open Approach (ICD-10-PCS; principal; 2017-10-30 07:30)
DX: N61.1 Abscess of the breast and nipple (principal); E87.1 Hypo-osmolality and hyponatremia; N60.82 Other benign mammary dysplasias of left breast; K21.9 Gastro-esophageal reflux disease without esophagitis; I10 Essential (primary) hypertension; J44.9 Chronic obstructive pulmonary disease, unspecified; F31.9 Bipolar disorder, unspecified; F17.210 Nicotine dependence, cigarettes, uncomplicated; Z88.2 Allergy status to sulfonamides; Z88.0 Allergy status to penicillin; E66.01 Morbid (severe) obesity due to excess calories; Z68.39 Body mass index [BMI] 39.0-39.9, adult; D72.829 Elevated white blood cell count, unspecified; E61.1 Iron deficiency; E03.9 Hypothyroidism, unspecified
CPT/HCPCS: 36415; 71045-TC; 76642-TC; 80048-TC; 80061-TC; 80076-TC; 80202-TC; 82728-TC; 83540-TC; 83690-TC; 83735-TC; 84100-TC; 84439-TC; 84443-TC; 84484-TC; 84703-TC; 85025-TC; 85730-TC; 86300; 87070-TC; 87081-TC; 88305-TC; 88312-TC; A4606; A6402; J0696; J1650; J1885; J2060; J2250; J2543; J3010; J3370; J3490; J7030; J7060; Z7610

== ENCOUNTER 2017-11-02 15:25 | Emergency (ER) | payer MEDICARE, MEDICAID ==
[~2017-11-02] VITALS: Ht 157.5 cm; Wt 97.1 kg
[2017-11-02 15:25] VITALS: BP 172/81
[~2017-11-02 15:25] MED LIST changes: +CLIN300C11 PO; +CLON0.5T12 PO; -ESCI5TAB PO; -ESOM40CA PO; +LAMO25TA5 PO; -LEVO25TA2 PO; +PROP10TA68 PO; -PROP20TA19 PO; +QUET25TA PO; +VENL225T PO
== END 2017-11-02 16:31 | disposition home or self-care (01) ==
LOC: ER 15:31
DX: B37.3 Candidiasis of vulva and vagina (principal); I10 Essential (primary) hypertension; F31.9 Bipolar disorder, unspecified; K21.9 Gastro-esophageal reflux disease without esophagitis; F17.200 Nicotine dependence, unspecified, uncomplicated; Z98.890 Other specified postprocedural states; Z88.0 Allergy status to penicillin; Z88.2 Allergy status to sulfonamides
CPT/HCPCS: 99283; 99406; A4606; Z7610

== ENCOUNTER 2017-11-05 16:34 | Emergency (ER) | payer MEDICARE, MEDICAID ==
[~2017-11-05] VITALS: Ht 152.4 cm; Wt 92.1 kg
--- NOTE | 2017-11-05 17:15 | NUR ---
AAOX3, CAME TO ER, FEELS SOB X 3 DAYS "MY LEFT LUNG FEELS INFLAMMED, I NEED STEROID." RR IS EVEN AND UNLABORED WITH NAD NOTED. SKIN IS WARM AND DRY. AWAITING MD FOR EVAL.
[2017-11-05] MEDS ORDERED: DEXAMETHASONE SOD PHOSPHATE 4 MG/ML VIAL IM ONE (17:30)
[2017-11-05] MEDS ORDERED: IPRATROPIUM NEB FS 0.5 MG/2.5 ML AMPUL.NEB NEB ONE (17:30)
[2017-11-05] MEDS ORDERED: ALBUTEROL FS 2.5 MG/3 ML VIAL.NEB NEB ONE (17:30)
[2017-11-05] MEDS ORDERED: IPRATROPIUM NEB FS 0.5 MG/2.5 ML AMPUL.NEB ONE (17:36)
[2017-11-05] MEDS ORDERED: ALBUTEROL FS 2.5 MG/3 ML VIAL.NEB ONE (17:36)
[2017-11-05 18:50] VITALS: BP 139/88
--- NOTE | 2017-11-05 18:50 | NUR ---
Patient discharged to home in stable condition. Written and verbal after care instructions given. Patient verbalizes understanding of instruction.
== END 2017-11-05 18:52 | disposition home or self-care (01) ==
LOC: ER 18:02
DX: J98.01 Acute bronchospasm (principal); F17.210 Nicotine dependence, cigarettes, uncomplicated; J41.0 Simple chronic bronchitis; I10 Essential (primary) hypertension; K21.9 Gastro-esophageal reflux disease without esophagitis; F31.9 Bipolar disorder, unspecified; Z88.0 Allergy status to penicillin; Z88.2 Allergy status to sulfonamides; Z79.899 Other long term (current) drug therapy
CPT/HCPCS: 71045-TC; A4606; Z7610

== ENCOUNTER 2017-11-07 13:57 | Outpatient (CLI) | payer MEDICARE, MEDICAID ==
[~2017-11-07 13:57] MED LIST changes: +DEXAMETHASONE SOD PHOSPHATE 10 MG/ML VIAL ONE
== END 2017-11-07 23:59 | disposition home health service (06) ==
LOC: WOU 13:57
PROVIDERS: ATTEND Surgery
DX: N61.1 Abscess of the breast and nipple (principal); I10 Essential (primary) hypertension; K21.9 Gastro-esophageal reflux disease without esophagitis; J45.909 Unspecified asthma, uncomplicated; Z72.0 Tobacco use; Z88.2 Allergy status to sulfonamides; E78.5 Hyperlipidemia, unspecified; Z79.899 Other long term (current) drug therapy; L03.319 Cellulitis of trunk, unspecified; S21.002A Unspecified open wound of left breast, initial encounter; X58.XXXA Exposure to other specified factors, initial encounter; Y92.89 Other specified places as the place of occurrence of the external cause
CPT/HCPCS: 11042; A6402; A6407; J1100; Z7610

== ENCOUNTER 2017-12-05 13:50 | Outpatient (CLI) | payer MEDICARE, MEDICAID ==
[~2017-12-05 13:50] MED LIST changes: -DEXAMETHASONE SOD PHOSPHATE 10 MG/ML VIAL ONE
== END 2017-12-05 23:59 | disposition home health service (06) ==
LOC: WOU 13:50
PROVIDERS: ATTEND Surgery
DX: N61.1 Abscess of the breast and nipple (principal); I10 Essential (primary) hypertension; J45.909 Unspecified asthma, uncomplicated; K21.9 Gastro-esophageal reflux disease without esophagitis; Z72.0 Tobacco use; F31.9 Bipolar disorder, unspecified; S21.002A Unspecified open wound of left breast, initial encounter; X58.XXXA Exposure to other specified factors, initial encounter; Y92.89 Other specified places as the place of occurrence of the external cause
CPT/HCPCS: 11042; A6402; Z7610

== ENCOUNTER 2018-03-27 12:50 | Outpatient (CLI) | payer MEDICARE, MEDICAID | END 2018-03-27 23:59 | disposition home or self-care (01) | LOC: WOU 12:50 | PROVIDERS: ATTEND Surgery | DX: N61.0 Mastitis without abscess (principal); L03.319 Cellulitis of trunk, unspecified; E66.9 Obesity, unspecified; Z68.34 Body mass index [BMI] 34.0-34.9, adult; F17.210 Nicotine dependence, cigarettes, uncomplicated; Z79.899 Other long term (current) drug therapy | CPT/HCPCS: G0463 ==

== ENCOUNTER 2018-04-03 12:46 | Outpatient (CLI) | payer MEDICARE, MEDICAID | END 2018-04-03 23:59 | disposition home or self-care (01) | LOC: WOU 12:46 | PROVIDERS: ATTEND Surgery | DX: N61.0 Mastitis without abscess (principal); S21.002A Unspecified open wound of left breast, initial encounter; X58.XXXA Exposure to other specified factors, initial encounter; Y92.89 Other specified places as the place of occurrence of the external cause | CPT/HCPCS: 11042; Z7610 ==

== ENCOUNTER 2018-05-05 13:30 | Outpatient (CLI) | payer MEDICARE, MEDICAID | END 2018-05-05 23:59 | disposition home or self-care (01) | LOC: WOU 13:30 | PROVIDERS: ATTEND Surgery | DX: N61.0 Mastitis without abscess (principal); S21.002A Unspecified open wound of left breast, initial encounter; X58.XXXA Exposure to other specified factors, initial encounter; Y92.89 Other specified places as the place of occurrence of the external cause; F17.200 Nicotine dependence, unspecified, uncomplicated; E66.9 Obesity, unspecified; Z68.34 Body mass index [BMI] 34.0-34.9, adult | CPT/HCPCS: 11042; A6402 ==

== ENCOUNTER 2018-05-12 12:05 | Outpatient (CLI) | payer MEDICARE, MEDICAID | END 2018-05-12 23:59 | disposition home or self-care (01) | LOC: WOU 12:05 | PROVIDERS: ATTEND Surgery | DX: N61.0 Mastitis without abscess (principal); M71.342 Other bursal cyst, left hand; F17.200 Nicotine dependence, unspecified, uncomplicated; E66.9 Obesity, unspecified; Z68.34 Body mass index [BMI] 34.0-34.9, adult | CPT/HCPCS: G0463 ==

== ENCOUNTER 2018-06-19 12:00 | Outpatient (CLI) | payer MEDICARE, MEDICAID | END 2018-06-19 23:59 | disposition home or self-care (01) | LOC: WOU 12:00 | PROVIDERS: ATTEND Surgery | DX: Z48.89 Encounter for other specified surgical aftercare (principal); E66.9 Obesity, unspecified; F17.200 Nicotine dependence, unspecified, uncomplicated; E78.5 Hyperlipidemia, unspecified; Z80.9 Family history of malignant neoplasm, unspecified | CPT/HCPCS: G0463 ==

== ENCOUNTER 2018-07-03 14:04 | Outpatient (CLI) | payer MEDICARE, MEDICAID | END 2018-07-03 23:59 | disposition home or self-care (01) | LOC: RAD 14:04 | PROVIDERS: ATTEND Surgery | DX: M25.842 Other specified joint disorders, left hand (principal) | CPT/HCPCS: 73130-TC ==

== ENCOUNTER 2018-08-06 06:01 | Emergency (ER) | payer MEDICARE, MEDICAID ==
[~2018-08-06] VITALS: Ht 157.5 cm; Wt 90.7 kg
--- NOTE | 2018-08-06 06:23 | NUR ---
MD AT BEDSIDE FOR EVALUATION
[2018-08-06] MEDS: ALBUTEROL FS 2.5 MG/3 ML VIAL.NEB CONTNEB ONE (06:34)
[2018-08-06] MEDS: predniSONE 20 MG TABLET PO ONE (06:34)
[2018-08-06] MEDS ORDERED: ALBUTEROL FS 2.5 MG/3 ML VIAL.NEB ONE (06:36)
--- NOTE | 2018-08-06 06:37 | NUR ---
PT BIBSELF C/O PRODUCTIVE COUGH WITH YELLOW/GREEN SPUTUM X2-3 WEEKS. PT DENIES FEVER, CHEST PAIN, N/V/D. PT STATES SHE IS ON LAST DAY OF 7 DAY COURSE OF CLINDAMYCIN BUT STILL HAS NO RELIEF. NOTED EXPIRATORY WHEEZING. PT AAOX4. RESPIRATIONS EVEN AND UNLABORED. SKIN WARM AND INTACT. VITAL SIGNS STABLE. NO ACUTE DISTRESS NOTED AT THIS TIME
--- NOTE | 2018-08-06 06:39 | NUR ---
RT AT BEDSIDE FOR BREATHING TREATMENT
[2018-08-06] MEDS: predniSONE 20 MG TABLET ONE (06:56)
--- NOTE | 2018-08-06 07:04 | NUR ---
IN BED RECEIVING BREATHNG TX. VSS,
--- NOTE | 2018-08-06 07:30 | NUR ---
Patient discharged to home in stable condition. Written and verbal after care instructions given. Patient verbalizes understanding of instruction. Pt ambulatory with a steady gait
[2018-08-06 07:31] VITALS: BP 124/88
== END 2018-08-06 07:31 | disposition home or self-care (01) ==
LOC: ER 06:06
DX: J20.9 Acute bronchitis, unspecified (principal); F17.210 Nicotine dependence, cigarettes, uncomplicated; I10 Essential (primary) hypertension; K21.9 Gastro-esophageal reflux disease without esophagitis; E78.5 Hyperlipidemia, unspecified; F31.9 Bipolar disorder, unspecified; Z98.890 Other specified postprocedural states; Z88.0 Allergy status to penicillin; Z88.2 Allergy status to sulfonamides
CPT/HCPCS: 94644; 99285; 99406; J7512

== ENCOUNTER 2018-08-18 12:50 | Outpatient (CLI) | payer MEDICARE, MEDICAID | END 2018-08-18 23:59 | disposition home or self-care (01) | LOC: WOU 12:50 | PROVIDERS: ATTEND Surgery | DX: N61.0 Mastitis without abscess (principal); N61.1 Abscess of the breast and nipple; R92.2 Inconclusive mammogram; E66.9 Obesity, unspecified; Z68.34 Body mass index [BMI] 34.0-34.9, adult; F17.200 Nicotine dependence, unspecified, uncomplicated | CPT/HCPCS: G0463 ==

== ENCOUNTER 2018-09-25 12:00 | Outpatient (CLI) | payer MEDICARE, MEDICAID | END 2018-09-25 23:59 | disposition home or self-care (01) | LOC: WOU 12:00 | PROVIDERS: ATTEND Surgery | DX: R92.2 Inconclusive mammogram (principal); L98.9 Disorder of the skin and subcutaneous tissue, unspecified; E66.9 Obesity, unspecified; Z68.34 Body mass index [BMI] 34.0-34.9, adult; Z72.0 Tobacco use | CPT/HCPCS: G0463 ==

== ENCOUNTER 2018-10-02 12:25 | Outpatient (CLI) | payer MEDICARE, MEDICAID | END 2018-10-02 23:59 | disposition home or self-care (01) | LOC: WOU 12:25 | PROVIDERS: ATTEND Surgery | PROC: 0HB5XZZ Excision of Chest Skin, External Approach (ICD-10-PCS; principal; 2018-10-02) | DX: L98.8 Other specified disorders of the skin and subcutaneous tissue (principal); F17.200 Nicotine dependence, unspecified, uncomplicated; R92.2 Inconclusive mammogram; E66.9 Obesity, unspecified; L03.319 Cellulitis of trunk, unspecified; N61.1 Abscess of the breast and nipple; N61.0 Mastitis without abscess; L98.9 Disorder of the skin and subcutaneous tissue, unspecified; D48.5 Neoplasm of uncertain behavior of skin | CPT/HCPCS: 11402; 88305; J3490 ==

== ENCOUNTER 2018-10-30 11:49 | Outpatient (CLI) | payer MEDICARE, MEDICAID | END 2018-10-30 23:59 | disposition home or self-care (01) | LOC: WOU 11:49 | PROVIDERS: ATTEND Surgery | DX: Z48.817 Encounter for surgical aftercare following surgery on the skin and subcutaneous tissue (principal); Z48.02 Encounter for removal of sutures; R92.2 Inconclusive mammogram; L98.9 Disorder of the skin and subcutaneous tissue, unspecified; E66.9 Obesity, unspecified; Z68.34 Body mass index [BMI] 34.0-34.9, adult; F17.200 Nicotine dependence, unspecified, uncomplicated; N61.0 Mastitis without abscess; L03.319 Cellulitis of trunk, unspecified | CPT/HCPCS: G0463 ==

== ENCOUNTER 2019-09-10 11:25 | Outpatient (CLI) | payer MEDICARE, MEDICAID ==
[~2019-09-10 11:25] MED LIST changes: -CLON0.5T12 PO; +CLON0.5T4 PO
== END 2019-09-10 23:59 | disposition home or self-care (01) ==
LOC: WOU 11:25
PROVIDERS: ATTEND Surgery
DX: N61.0 Mastitis without abscess (principal); E66.09 Other obesity due to excess calories; Z68.39 Body mass index [BMI] 39.0-39.9, adult; Z72.0 Tobacco use
CPT/HCPCS: G0463

== ENCOUNTER 2019-09-17 11:30 | Outpatient (CLI) | payer MEDICARE, MEDICAID | END 2019-09-17 23:59 | disposition home or self-care (01) | LOC: WOU 11:30 | PROVIDERS: ATTEND Surgery | DX: Z09 Encounter for follow-up examination after completed treatment for conditions other than malignant neoplasm (principal); R92.8 Other abnormal and inconclusive findings on diagnostic imaging of breast; E66.09 Other obesity due to excess calories; Z68.39 Body mass index [BMI] 39.0-39.9, adult; Z72.0 Tobacco use | CPT/HCPCS: G0463 ==

== ENCOUNTER 2019-09-17 12:10 | Emergency (ER) | payer MEDICARE, OTHER ==
[~2019-09-17] VITALS: Ht 157.5 cm; Wt 95.3 kg
[2019-09-17 12:17] VITALS: BP 138/80
--- NOTE | 2019-09-17 12:23 | NUR ---
AT BEDSIDE FOR EVAL.
--- NOTE | 2019-09-17 12:38 | NUR ---
CANE LOADER AT BEDSIDE FOR XRAY.
[2019-09-17] MEDS ORDERED: predniSONE 10 MG TABLET ONE (13:42)
[2019-09-17] MEDS ORDERED: predniSONE 20 MG TABLET ONE (13:42)
[2019-09-17] MEDS ORDERED: predniSONE 50 MG TABLET PO ONE (14:00)
--- NOTE | 2019-09-17 14:04 | NUR ---
COVID SWAB OBTAINED AND SENT TO LAB.
--- NOTE | 2019-09-17 14:23 | NUR ---
Patient discharged to home in stable condition. Written and verbal after care instructions given. Patient verbalizes understanding of instruction.
== END 2019-09-17 14:24 | disposition home or self-care (01) ==
LOC: ER 12:13
DX: J20.9 Acute bronchitis, unspecified (principal); F17.210 Nicotine dependence, cigarettes, uncomplicated; I10 Essential (primary) hypertension; E78.5 Hyperlipidemia, unspecified; Z95.810 Presence of automatic (implantable) cardiac defibrillator; Z87.892 Personal history of anaphylaxis; Z88.0 Allergy status to penicillin; Z88.2 Allergy status to sulfonamides
CPT/HCPCS: 71045-TC; C9803-CS; U0003-CS

== ENCOUNTER 2019-09-25 13:30 | Emergency (ER) | payer MEDICARE, OTHER ==
[~2019-09-25] VITALS: Ht 157.5 cm; Wt 95.3 kg
[2019-09-25 13:58] VITALS: BP 125/89
[2019-09-25] MEDS ORDERED: HYDROCODONE/APAP 5/325MG 1 EACH TABLET PO ONE (14:30)
[2019-09-25] MEDS ORDERED: HYDROCODONE/APAP 5/325MG 1 EACH TABLET ONE (14:34)
[2019-09-25] MEDS ORDERED: LIDOCAINE HCL/MPF 1% 30 ML VIAL IJ ONE (14:49)
[2019-09-25] MEDS ORDERED: LIDOCAINE HCL/PF 1% 30 ML VIAL TP ONE (16:00)
== END 2019-09-25 15:43 | disposition home or self-care (01) ==
LOC: ER 13:30
DX: N61.1 Abscess of the breast and nipple (principal); I10 Essential (primary) hypertension; K21.9 Gastro-esophageal reflux disease without esophagitis; E78.5 Hyperlipidemia, unspecified; F31.9 Bipolar disorder, unspecified; F17.210 Nicotine dependence, cigarettes, uncomplicated; Z88.0 Allergy status to penicillin; Z88.2 Allergy status to sulfonamides; Z60.2 Problems related to living alone; Z79.899 Other long term (current) drug therapy
CPT/HCPCS: 10060; 76642; 99284; A6403; J3490 ×2

== ENCOUNTER 2019-10-01 11:00 | Outpatient (CLI) | payer MEDICARE, OTHER | END 2019-10-01 23:59 | disposition home or self-care (01) | LOC: WOU 11:00 | PROVIDERS: ATTEND Surgery | DX: Z09 Encounter for follow-up examination after completed treatment for conditions other than malignant neoplasm (principal); R92.8 Other abnormal and inconclusive findings on diagnostic imaging of breast; E66.09 Other obesity due to excess calories; Z68.39 Body mass index [BMI] 39.0-39.9, adult; Z72.0 Tobacco use | CPT/HCPCS: G0463 ==

== ENCOUNTER 2019-10-22 11:10 | Outpatient (CLI) | payer MEDICARE, MEDICAID ==
[2019-10-22] MEDS ORDERED: LIDOCAINE 2%-EPI 1:100,000 30 ML VIAL ONE (11:28)
== END 2019-10-22 23:59 | disposition home health service (06) ==
LOC: WOU 11:10
PROVIDERS: ATTEND Surgery
DX: L03.313 Cellulitis of chest wall (principal); N61.1 Abscess of the breast and nipple; E66.09 Other obesity due to excess calories; Z68.39 Body mass index [BMI] 39.0-39.9, adult; Z72.0 Tobacco use
CPT/HCPCS: 11042; 87070; 87077; 87186; A6407; J3490

== ENCOUNTER 2019-10-29 11:00 | Outpatient (CLI) | payer MEDICARE, MEDICAID ==
[2019-10-29] MEDS ORDERED: LIDOCAINE SOLN 4% 50 ML BOTTLE ONE (11:11)
== END 2019-10-29 23:59 | disposition home or self-care (01) ==
LOC: WOU 11:00
PROVIDERS: ATTEND Surgery
DX: N61.1 Abscess of the breast and nipple (principal); L03.313 Cellulitis of chest wall; E66.09 Other obesity due to excess calories; Z68.39 Body mass index [BMI] 39.0-39.9, adult; Z72.0 Tobacco use
CPT/HCPCS: A6407; G0463

== ENCOUNTER 2019-11-05 11:00 | Outpatient (CLI) | payer MEDICARE, MEDICAID | END 2019-11-05 23:59 | disposition home health service (06) | LOC: WOU 11:00 | PROVIDERS: ATTEND Surgery | DX: N61.0 Mastitis without abscess (principal); E66.09 Other obesity due to excess calories; Z68.39 Body mass index [BMI] 39.0-39.9, adult; R92.8 Other abnormal and inconclusive findings on diagnostic imaging of breast; Z72.0 Tobacco use | CPT/HCPCS: G0463 ==

== ENCOUNTER 2019-11-12 16:23 | Emergency (ER) | payer MEDICARE, MEDICAID ==
[~2019-11-12] VITALS: Ht 157.5 cm; Wt 93.0 kg
[2019-11-12 16:40] VITALS: BP 131/83
[2019-11-12] MEDS ORDERED: CLINDAMYCIN HCL 150 MG CAPSULE PO ONE (17:02)
[2019-11-12] MEDS ORDERED: HYDROCODONE/APAP 5/325MG TABLET ONE (17:02)
[2019-11-12] MEDS: CLINDAMYCIN HCL 150 MG CAPSULE PO ONE (17:06)
[2019-11-12] MEDS: HYDROCODONE/APAP 5/325MG TABLET PO ONE (17:07)
--- NOTE | 2019-11-12 17:08 | NUR ---
Patient discharged to home in stable condition. Written and verbal after care instructions given. Patient verbalizes understanding of instruction.
== END 2019-11-12 17:39 | disposition home or self-care (01) ==
LOC: ER 16:23
DX: N61.0 Mastitis without abscess (principal); I10 Essential (primary) hypertension; K21.9 Gastro-esophageal reflux disease without esophagitis; E78.5 Hyperlipidemia, unspecified; F31.9 Bipolar disorder, unspecified; F17.210 Nicotine dependence, cigarettes, uncomplicated; Z88.0 Allergy status to penicillin; Z88.2 Allergy status to sulfonamides; Z60.2 Problems related to living alone; Z79.899 Other long term (current) drug therapy

== ENCOUNTER 2019-11-19 11:30 | Outpatient (CLI) | payer MEDICARE, OTHER | END 2019-11-19 23:59 | disposition home health service (06) | LOC: WOU 11:30 | PROVIDERS: ATTEND Surgery | DX: Z09 Encounter for follow-up examination after completed treatment for conditions other than malignant neoplasm (principal); Z87.2 Personal history of diseases of the skin and subcutaneous tissue; R92.8 Other abnormal and inconclusive findings on diagnostic imaging of breast; E66.09 Other obesity due to excess calories; Z68.39 Body mass index [BMI] 39.0-39.9, adult; Z72.0 Tobacco use | CPT/HCPCS: G0463 ==

== ENCOUNTER 2020-01-07 11:09 | Outpatient (CLI) | payer MEDICARE, OTHER | END 2020-01-07 23:59 | disposition home health service (06) | LOC: WOU 11:09 | PROVIDERS: ATTEND Surgery | DX: N61.1 Abscess of the breast and nipple (principal); R92.8 Other abnormal and inconclusive findings on diagnostic imaging of breast; L03.313 Cellulitis of chest wall; E11.9 Type 2 diabetes mellitus without complications; Z79.84 Long term (current) use of oral hypoglycemic drugs; Z72.0 Tobacco use; E66.09 Other obesity due to excess calories; Z68.39 Body mass index [BMI] 39.0-39.9, adult | CPT/HCPCS: A6407; G0463 ==

== ENCOUNTER 2020-02-11 11:10 | Outpatient (CLI) | payer MEDICARE, OTHER | END 2020-02-11 23:59 | disposition home health service (06) | LOC: WOU 11:10 | PROVIDERS: ATTEND Surgery | DX: R92.8 Other abnormal and inconclusive findings on diagnostic imaging of breast (principal); E11.9 Type 2 diabetes mellitus without complications; Z79.84 Long term (current) use of oral hypoglycemic drugs; Z72.0 Tobacco use; E66.09 Other obesity due to excess calories; Z68.39 Body mass index [BMI] 39.0-39.9, adult | CPT/HCPCS: G0463 ==

== ENCOUNTER 2020-09-15 11:33 | Outpatient (CLI) | payer MEDICARE, OTHER ==
[~2020-09-15 11:33] MED LIST changes: -CLIN300C11 PO; +CLIN300C12 PO
== END 2020-09-15 23:59 | disposition home or self-care (01) ==
LOC: WOU 11:33
PROVIDERS: ATTEND Surgery
DX: R92.8 Other abnormal and inconclusive findings on diagnostic imaging of breast (principal); E11.9 Type 2 diabetes mellitus without complications; Z79.84 Long term (current) use of oral hypoglycemic drugs; Z72.0 Tobacco use; E66.09 Other obesity due to excess calories; Z68.39 Body mass index [BMI] 39.0-39.9, adult; F10.20 Alcohol dependence, uncomplicated
CPT/HCPCS: G0463

== ENCOUNTER 2020-10-11 09:03 | Outpatient (CLI) | payer MEDICARE, OTHER ==
[2020-10-11] MEDS ORDERED: LIDOCAINE 2%-EPI 1:100,000 30 ML VIAL ONE (09:21)
== END 2020-10-11 23:59 | disposition home or self-care (01) ==
LOC: WOU 09:03
PROVIDERS: ATTEND Surgery
DX: N61.1 Abscess of the breast and nipple (principal); L03.112 Cellulitis of left axilla; L72.3 Sebaceous cyst; E66.09 Other obesity due to excess calories; Z68.39 Body mass index [BMI] 39.0-39.9, adult; F10.20 Alcohol dependence, uncomplicated; Y90.9 Presence of alcohol in blood, level not specified; E11.8 Type 2 diabetes mellitus with unspecified complications; Z79.84 Long term (current) use of oral hypoglycemic drugs
CPT/HCPCS: 10060; 87070; 87075; A6407; J3490

== ENCOUNTER 2020-10-17 11:00 | Outpatient (CLI) | payer MEDICARE, OTHER | END 2020-10-17 23:59 | disposition home or self-care (01) | LOC: WOU 11:00 | PROVIDERS: ATTEND Registered Nurse | DX: N61.0 Mastitis without abscess (principal); F17.210 Nicotine dependence, cigarettes, uncomplicated; Z88.0 Allergy status to penicillin; Z88.2 Allergy status to sulfonamides; I10 Essential (primary) hypertension; E78.5 Hyperlipidemia, unspecified; J45.909 Unspecified asthma, uncomplicated; F31.9 Bipolar disorder, unspecified; Z87.892 Personal history of anaphylaxis; Z79.899 Other long term (current) drug therapy | CPT/HCPCS: G0463 ==

== ENCOUNTER 2020-10-18 09:05 | Outpatient (CLI) | payer MEDICARE, OTHER | END 2020-10-18 23:59 | disposition home or self-care (01) | LOC: WOU 09:05 | PROVIDERS: ATTEND Surgery | DX: L03.112 Cellulitis of left axilla (principal); L72.3 Sebaceous cyst; N61.0 Mastitis without abscess; E11.8 Type 2 diabetes mellitus with unspecified complications; Z79.84 Long term (current) use of oral hypoglycemic drugs; E66.09 Other obesity due to excess calories; Z68.39 Body mass index [BMI] 39.0-39.9, adult | CPT/HCPCS: G0463 ==

== ENCOUNTER 2021-08-05 18:36 | Emergency (ER) | payer MEDICARE, OTHER ==
[~2021-08-05] VITALS: Ht 157.5 cm; Wt 117.9 kg
--- NOTE | 2021-08-05 18:55 | NUR ---
RECIEVED PT 51 YRS FEMALE CAME FROM HOME C/O REDNESS AND SWALLEN ON LT BREAST NO DRANING WATING TO BE SEEN BY PROVDER
[2021-08-05] MEDS ORDERED: DOXY-326 PO (19:11)
--- NOTE | 2021-08-05 19:20 | NUR ---
HAND OFFTO KATHYA KIRKPATRICK
--- NOTE | 2021-08-05 19:25 | NUR ---
RECEIVED REPORT FROM MULUGETA KIRKPATRICK FOR ARNOLDO
[2021-08-05 19:55] VITALS: BP 133/70
--- NOTE | 2021-08-05 19:55 | NUR ---
Patient discharged to home in stable condition. Written and verbal after care instructions given. Patient verbalizes understanding of instruction.
== END 2021-08-05 19:57 | disposition home or self-care (01) ==
LOC: ER 18:40
DX: N61.1 Abscess of the breast and nipple (principal); N61.0 Mastitis without abscess; F17.210 Nicotine dependence, cigarettes, uncomplicated; E11.9 Type 2 diabetes mellitus without complications; I10 Essential (primary) hypertension; E78.5 Hyperlipidemia, unspecified; F31.9 Bipolar disorder, unspecified; Z87.19 Personal history of other diseases of the digestive system; Z88.0 Allergy status to penicillin; Z88.2 Allergy status to sulfonamides; Z60.2 Problems related to living alone; Z79.899 Other long term (current) drug therapy

== ENCOUNTER 2021-08-15 09:15 | Outpatient (CLI) | payer MEDICARE, OTHER ==
[~2021-08-15 09:15] MED LIST changes: +DOXY-326 PO
== END 2021-08-15 23:59 | disposition home or self-care (01) ==
LOC: WOU 09:15
PROVIDERS: ATTEND Surgery
DX: N61.1 Abscess of the breast and nipple (principal); E11.9 Type 2 diabetes mellitus without complications; E78.5 Hyperlipidemia, unspecified; F17.200 Nicotine dependence, unspecified, uncomplicated
CPT/HCPCS: G0463

== ENCOUNTER 2021-08-29 08:15 | Outpatient (CLI) | payer MEDICARE, OTHER | END 2021-08-29 23:59 | disposition home or self-care (01) | LOC: WOU 08:15 | PROVIDERS: ATTEND Surgery | DX: Z09 Encounter for follow-up examination after completed treatment for conditions other than malignant neoplasm (principal); Z87.2 Personal history of diseases of the skin and subcutaneous tissue; L90.5 Scar conditions and fibrosis of skin; F17.200 Nicotine dependence, unspecified, uncomplicated | CPT/HCPCS: G0463 ==

== ENCOUNTER 2022-05-03 09:39 | Emergency (ER) | payer MEDICARE, OTHER ==
[~2022-05-03] VITALS: Ht 154.9 cm; Wt 90.7 kg
[2022-05-03] MEDS ORDERED: CLOT15CR27 TP (10:46)
[2022-05-03] MEDS ORDERED: FLUCONAZOLE (100 MG) 100 MG TABLET ONE (10:50)
[2022-05-03] MEDS ORDERED: FLUCONAZOLE (100 MG) 100 MG TABLET PO ONE (11:00)
--- NOTE | 2022-05-03 11:00 | NUR ---
Patient discharged to home in stable condition ambulating by self. Written and verbal after care instructions given. Patient verbalizes understanding of instruction.
[2022-05-03 11:08] VITALS: BP 128/79
== END 2022-05-03 11:30 | disposition home or self-care (01) ==
LOC: ER 09:45
DX: N61.0 Mastitis without abscess (principal); I10 Essential (primary) hypertension; E78.5 Hyperlipidemia, unspecified; K21.9 Gastro-esophageal reflux disease without esophagitis; F31.9 Bipolar disorder, unspecified; F17.200 Nicotine dependence, unspecified, uncomplicated; Z88.0 Allergy status to penicillin; Z88.2 Allergy status to sulfonamides; Z60.2 Problems related to living alone; Z79.899 Other long term (current) drug therapy

== ENCOUNTER 2022-05-15 10:00 | Outpatient (CLI) | payer MEDICARE, OTHER ==
[~2022-05-15 10:00] MED LIST changes: +CLOT15CR27 TP
== END 2022-05-15 23:59 | disposition home or self-care (01) ==
LOC: WOU 10:00
PROVIDERS: ATTEND Surgery
DX: L30.4 Erythema intertrigo (principal); E11.9 Type 2 diabetes mellitus without complications; F17.200 Nicotine dependence, unspecified, uncomplicated
CPT/HCPCS: G0463

== ENCOUNTER 2023-11-13 21:42 | Emergency (ER) | payer MEDICARE, OTHER ==
[~2023-11-13] VITALS: Ht 154.9 cm; Wt 89.8 kg
[2023-11-13] MEDS ORDERED: GABAPENTIN 100 MG CAPSULE ONE (23:58)
[2023-11-13] MEDS: GABAPENTIN 100 MG CAPSULE PO ONE (23:59)
--- NOTE | 2023-11-14 00:08 | NUR ---
MEDICATED ORDERED. SEE MAR
[2023-11-14] MEDS ORDERED: MELO-107 PO (01:39)
[2023-11-14 01:46] VITALS: BP 121/71; TEMP 98; O2SAT 99
--- NOTE | 2023-11-14 01:46 | NUR ---
Patient discharged to home in stable condition. Written and verbal after care instructions given. Patient verbalizes understanding of instruction.
== END 2023-11-14 01:47 | disposition home or self-care (01) ==
LOC: ER 21:46
DX: G56.02 Carpal tunnel syndrome, left upper limb (principal); I10 Essential (primary) hypertension; E78.5 Hyperlipidemia, unspecified; K21.9 Gastro-esophageal reflux disease without esophagitis; F17.210 Nicotine dependence, cigarettes, uncomplicated; F31.9 Bipolar disorder, unspecified; Z88.0 Allergy status to penicillin; Z88.2 Allergy status to sulfonamides; Z60.2 Problems related to living alone
CPT/HCPCS: 73110

== ENCOUNTER 2024-03-23 12:16 | Emergency (ER) | payer MEDICARE, OTHER ==
[~2024-03-23] VITALS: Ht 157.5 cm; Wt 91.6 kg
[~2024-03-23 12:16] MED LIST changes: +MELO-107 PO
[2024-03-23] MEDS ORDERED: methylPREDNISolone SOD SUCC 125 MG/2ML VIAL ONE (13:19)
[2024-03-23 13:43] LABS: BASOPHILS # (AUTO) 0.1 K/uL (0.0-0.2); BASOPHILS % (AUTO) 0.5 % (0.0-2.0); EOSINOPHILS # (AUTO) 0.1 K/uL (0.0-0.7); HEMATOCRIT 43 % (33-45); HEMOGLOBIN 14.8 g/dL (11.5-14.8); LYMPHOCYTES # (AUTO) 2.3 K/uL (0.8-4.8); LYMPHOCYTES % (AUTO) 20.8 % (20.0-44.0); MEAN CORPUSCULAR HEMOGLOBIN 31 PG (26.0-33.0); MEAN CORPUSCULAR HGB CONC 35 g/dl (31.0-36.0); MEAN CORPUSCULAR VOLUME 90 fL (82-100); MONOCYTES # (AUTO) 0.7 K/uL (0.1-1.30); MONOCYTES % (AUTO) 6.5 % (2.0-12.0); NEUTROPHILS % (AUTO) 71.2 % (43.0-81.0); PLATELET COUNT (AUTO) 266 K/uL (150-450); RED BLOOD CELL COUNT(AUTO) 4.77 MIL/uL (4.0-5.2); RED CELL DISTRIBUTION WIDTH 13.6 % (11.5-15.0); WHITE BLOOD COUNT (AUTO) 11.2 K/uL (4.3-11.0)
[2024-03-23] MEDS: IV NS 0.9% 1,000 ML BAG IV ONE (13:47)
[2024-03-23 13:48] LABS: CALCIUM, SERUM 8.7 mg/dL (8.5-10.1); CARBON DIOXIDE 30 mmol/L (21-32); CHLORIDE 99 mmol/L (98-107); CREATININE 0.8 mg/dL (0.6-1.3); GLUCOSE 188 mg/dL (74-106); POTASSIUM 3.1 mmol/L (3.5-5.1); SODIUM SERUM 135 mmol/L (136-145); UREA NITROGEN, BLOOD 8 mg/dL (7-18)
[2024-03-23] MEDS: methylPREDNISolone SOD SUCC 125 MG/2ML VIAL IV ONE (13:48)
[2024-03-23] MEDS ORDERED: IPRATROPIUM NEB FS 0.5 MG/2.5 ML AMPUL.NEB ONE ×2 (13:55→15:25)
[2024-03-23] MEDS ORDERED: ALBUTEROL FS 2.5 MG/3 ML VIAL.NEB ONE (13:55)
[2024-03-23 13:57] VITALS: O2SAT 95
[2024-03-23] MEDS: IPRATROPIUM NEB FS 0.5 MG/2.5 ML AMPUL.NEB NEB ONE ×2 (13:57→15:28)
[2024-03-23] MEDS: ALBUTEROL FS 2.5 MG/0.5 ML VIAL.NEB NEB ONE (13:57)
[2024-03-23 14:02] LABS: NT-PRO BNP 22 pg/mL (0-125)
[2024-03-23 14:13] VITALS: O2SAT 98
[2024-03-23 14:56] LABS: BILIRUBIN,DIRECT 0.1 mg/dL (0.0-0.2); BILIRUBIN,TOTAL 0.5 mg/dL (0.2-1.0); TOTAL PROTEIN, SERUM 7.7 g/dL (6.4-8.2)
[2024-03-23] MEDS ORDERED: predniSONE 20 MG TABLET ONE ×2 (15:08→15:10)
[2024-03-23] MEDS ORDERED: POTASSIUM CHLORIDE 20 MEQ TAB.PRT.SR PO ONE ×2 (15:09→15:11)
[2024-03-23] MEDS: POTASSIUM CHLORIDE 20 MEQ TAB.PRT.SR PO ONE (15:14)
[2024-03-23] MEDS: predniSONE 20 MG TABLET PO ONE (15:17)
[2024-03-23 15:28] VITALS: O2SAT 94
[2024-03-23 15:37] VITALS: O2SAT 97
[2024-03-23] MEDS ORDERED: ALBU0.633 NEB (16:16)
[2024-03-23] MEDS ORDERED: PRED50TA PO (16:16)
[2024-03-23 16:47] VITALS: BP 101/54; TEMP 98.1; O2SAT 95
== END 2024-03-23 16:48 | disposition home or self-care (01) ==
LOC: ER 12:30
DX: J44.89 Other specified chronic obstructive pulmonary disease (principal); E11.9 Type 2 diabetes mellitus without complications; E78.5 Hyperlipidemia, unspecified; E87.6 Hypokalemia; F17.210 Nicotine dependence, cigarettes, uncomplicated; I10 Essential (primary) hypertension; J43.9 Emphysema, unspecified; R07.9 Chest pain, unspecified; R09.81 Nasal congestion; R51.9 Headache, unspecified; R53.81 Other malaise; K21.9 Gastro-esophageal reflux disease without esophagitis; Z79.1 Long term (current) use of non-steroidal anti-inflammatories (NSAID); Z79.899 Other long term (current) drug therapy; Z88.0 Allergy status to penicillin; Z88.2 Allergy status to sulfonamides; Z20.822 Contact with and (suspected) exposure to COVID-19; Z60.2 Problems related to living alone
CPT/HCPCS: 99285; 96374; 71045; 96361; 87426; 93005; 87804 ×2; 85025; 80048; 80076; 36415; 84484; 83880; 94799; 94640; J7512 ×2; J7030; J2919

== ENCOUNTER 2024-11-17 19:44 | Emergency (ER) | payer MEDICARE, OTHER ==
[~2024-11-17] VITALS: Ht 165.1 cm; Wt 77.1 kg
[2024-11-17 19:44] VITALS: BP 118/81; TEMP 98.3; O2SAT 100
[~2024-11-17 19:44] MED LIST changes: +ALBU0.633 NEB; +PRED50TA PO
[2024-11-17] MEDS ORDERED: DIAZ10TA4 PO (20:39)
[2024-11-17] MEDS ORDERED: CLIN300C12 PO (20:39)
[2024-11-17] MEDS ORDERED: AZIT250T13 PO (20:45)
== END 2024-11-17 22:00 | disposition home or self-care (01) ==
LOC: ER 19:53
DX: K04.7 Periapical abscess without sinus (principal); R68.84 Jaw pain; E11.9 Type 2 diabetes mellitus without complications; E78.5 Hyperlipidemia, unspecified; F17.210 Nicotine dependence, cigarettes, uncomplicated; F31.9 Bipolar disorder, unspecified; I10 Essential (primary) hypertension; Z76.0 Encounter for issue of repeat prescription; Z79.1 Long term (current) use of non-steroidal anti-inflammatories (NSAID); Z79.52 Long term (current) use of systemic steroids; Z79.899 Other long term (current) drug therapy; Z88.0 Allergy status to penicillin; Z88.2 Allergy status to sulfonamides; Z86.79 Personal history of other diseases of the circulatory system; Z87.09 Personal history of other diseases of the respiratory system; Z87.19 Personal history of other diseases of the digestive system; Z60.2 Problems related to living alone